=== PATIENT | female | born 1970 | race Caucasian/White ===

== ENCOUNTER 2017-04-17 14:44 | Inpatient (IN) | payer SELFPAY ==
[~2017-04-17] VITALS: Ht 160 cm; Wt 59.0 kg
[2017-04-17 15:18] LABS: BASOPHILS 0.2 % (0-2); EOSINOPHILS 0.4 % (0-7); HEMATOCRIT 42.4 % (36.0-48.0); HEMOGLOBIN 14.1 g/dL (12-16); IMMATURE GRANULOCYTES 0.2 % (0-5); LYMPHOCYTES 6.8 % (15-50); MCH 30.9 pg (26.0-34.0); MCHC 33.3 g/dL (31.0-37.0); MCV 92.8 fL (80.0-100.0); MEAN PLATELET VOLUME 10.8 fL (7.4-10.4); MONOCYTES 14.7 % (2-11); NEUTROPHILS 77.7 % (40-80); PLATELET COUNT 272 10x3/uL (130-400); RBC 4.57 10x6/uL (4.00-5.40); RDW 13.3 % (11.5-14.5); WBC 17.1 10x3/uL (4.8-10.8)
[2017-04-17 15:31] LABS: APPEARANCE CLEAR (CLEAR); BILIRUBIN NEGATIVE (NEGATIVE); COLOR YELLOW (YELLOW); GLUCOSE NEGATIVE (NEGATIVE); KETONE NEGATIVE (NEGATIVE); LEUKOCYTE ESTERASE TRACE (NEGATIVE); NITRITE NEGATIVE (NEGATIVE); PROTEIN NEGATIVE (NEGATIVE); UROBILINOGEN NORMAL (NORMAL)
[2017-04-17 15:33] LABS: EPITHELIAL CELLS 0-5 /hpf (0-5); RED CELLS - URINE 0-5 /hpf (0-5); WHITE CELLS - URINE 0-5 /hpf (0-5)
[2017-04-17 15:34] LABS: BACTERIA FEW /hpf (NONE SEEN)
[2017-04-17 15:42] LABS: ALBUMIN 4.2 g/dL (3.4-5.0); ALKALINE PHOSPHATASE 65 U/L (46-116); ALT (SGPT) 18 U/L (10-68); AMYLASE - SERUM 35 U/L (25-115); BILIRUBIN - TOTAL 0.56 mg/dL (0.2-1.3); CALC OSMOLALITY 270 mosm/kg (275-300); CALCIUM 9.4 mg/dL (8.5-10.1); CARBON DIOXIDE 22.7 mmol/L (21.0-32.0); CHLORIDE - SERUM 102 mmol/L (98-107); CREATININE - SERUM 0.6 mg/dL (0.6-1.3); GLUCOSE 113 mg/dL (74-106); LIPASE 81 U/L (73-393); PROTEIN - SERUM 7.1 g/dL (6.4-8.2); SODIUM 136 mmol/L (136-145); UREA NITROGEN 8 mg/dL (7-18); eGFR NON AFRICAN AMERICAN > 90 mL/min (90-120)
--- NOTE | 2017-04-17 20:10 | NUR ---
PATIENT RESTING IN BED WITH GUEST AT BEDSIDE. NO VISIBLE SIGNS OF DISTRESS. PATIENT REQUESTED PAIN MEDS WHEN DUE. PT DENIES OTHER NEEDS AT THIS TIME. BED IN LOWEST POSITION AND CALL LIGHT WITHIN REACH. ENCOURAGED THE PT TO CALL IF SHE HAS NEEDS.
--- NOTE | 2017-04-17 22:17 | NUR ---
PT REQUESTED NICOTINE PATCH WHILE IN THE HOSPITAL
[2017-04-17 22:39] VITALS: BP 101/78; BMI 23.0
[2017-04-18] VITALS (7 sets, daily range): BP systolic 90–125; BP diastolic 58–86; Ht 160 cm; Wt 59.0 kg
[2017-04-18 05:57] LABS: BASOPHILS 0.1 % (0-2); EOSINOPHILS 0.5 % (0-7); HEMATOCRIT 35.5 % (36.0-48.0); HEMOGLOBIN 11.9 g/dL (12-16); IMMATURE GRANULOCYTES 0.3 % (0-5); LYMPHOCYTES 6.8 % (15-50); MCH 30.7 pg (26.0-34.0); MCHC 33.5 g/dL (31.0-37.0); MCV 91.5 fL (80.0-100.0); MEAN PLATELET VOLUME 10.5 fL (7.4-10.4); MONOCYTES 15.9 % (2-11); NEUTROPHILS 76.4 % (40-80); PLATELET COUNT 248 10x3/uL (130-400); RBC 3.88 10x6/uL (4.00-5.40); RDW 13.3 % (11.5-14.5); WBC 13.6 10x3/uL (4.8-10.8)
[2017-04-18 06:25] LABS: ALKALINE PHOSPHATASE 59 U/L (46-116); BILIRUBIN - DIRECT 0.12 mg/dL (0.00-0.30); BILIRUBIN - INDIRECT 0.41 mg/dL (0.00-1.00); BILIRUBIN - TOTAL 0.53 mg/dL (0.2-1.3); CALC OSMOLALITY 268 mosm/kg (275-300); CALCIUM 7.9 mg/dL (8.5-10.1); CARBON DIOXIDE 22.7 mmol/L (21.0-32.0); CHLORIDE - SERUM 105 mmol/L (98-107); CREATININE - SERUM 0.5 mg/dL (0.6-1.3); GLUCOSE 112 mg/dL (74-106); LIPASE 71 U/L (73-393); POTASSIUM - SERUM 4.3 mmol/L (3.5-5.1); PROTEIN - SERUM 5.7 g/dL (6.4-8.2); SODIUM 135 mmol/L (136-145); UREA NITROGEN 8 mg/dL (7-18); eGFR NON AFRICAN AMERICAN > 90 mL/min (90-120)
[2017-04-18 06:27] LABS: ALT (SGPT) 27 U/L (10-68); AMYLASE - SERUM 25 U/L (25-115)
--- NOTE | 2017-04-18 07:35 | NUR ---
A&O, NO DISTRESS NOTED, DENIES NEEDS, ASKING ABOUT HAVING SIRGERY TODAY, BED LOWEST POSITION, CALL LIGHT IN REACH, WILL CONTINUE TO MONITOR
[2017-04-18 11:29] LABS: INR 1.08 (0.85-1.17); PROTIME 13.9 SECONDS (11.6-15.0)
--- NOTE | 2017-04-18 11:45 | NUR ---
TOTAL FLUOR TIME DURING PROCEDURE ONE MINUTE, 8 SECONDS, TOTAL CONTRAST DYE USED 15 ML
--- NOTE | 2017-04-18 12:30 | NUR ---
RECEIVE TO FLOOR FROM RECOVERY, DENIES NEEDS, STILL SOME COMPLAINTS OF ABDOMINAL PAIN, CONNECTED BACK TO HEADING MAKER, WILL CONTINUE TO MONITOR
--- NOTE | 2017-04-18 14:29 | NUR ---
REPORT RECIEVED ASSUMED CARE. PATIENT IN BED WITH IV INTACT. NO COMPLAINTS AT THIS TIME. CALL LIGHT WITHIN REACH.
--- NOTE | 2017-04-18 18:45 | NUR ---
PATIENT IN BED WITH IV INTACT. NO COMPLAINTS AT THIS TIME. FAMILY AT BEDSIDE. CALL LIGHT WITHIN REACH.
--- NOTE | 2017-04-18 19:50 | NUR ---
PATIENT RESTING IN BED WITH GUEST AT BEDSIDE. I BROUGHT THE PT WARM TEA THAT SHE REQUESTED FOR HER "SORE THROAT". PATIENT DENIES OTHER NEEDS AT THIS TIME. BED IN LOWEST POSITION AND CALL LIGHT WITHIN REACH. ENCOURAGED THE PATIENT TO CALL IF SHE HAS NEEDS.
[2017-04-19] VITALS: BP 102/62
--- NOTE | 2017-04-19 02:30 | NUR ---
NOTIFIED BY HAM JEAN BAPTISTE THAT THE PATIENT'S IV APPEARED TO BE RED AND TENDER. I RESITED THE PATIENT'S IV IN THE LEFT FA WITH A 20G ON THE SECOND ATTEMPT.
[2017-04-19 04:00] VITALS: BP 99/66
[2017-04-19 06:13] LABS: BASOPHILS 0.2 % (0-2); EOSINOPHILS 1.1 % (0-7); HEMATOCRIT 32.8 % (36.0-48.0); HEMOGLOBIN 11.1 g/dL (12-16); IMMATURE GRANULOCYTES 0.2 % (0-5); LYMPHOCYTES 11.1 % (15-50); MCH 30.7 pg (26.0-34.0); MCHC 33.8 g/dL (31.0-37.0); MCV 90.6 fL (80.0-100.0); MEAN PLATELET VOLUME 10.6 fL (7.4-10.4); MONOCYTES 14.2 % (2-11); NEUTROPHILS 73.2 % (40-80); PLATELET COUNT 243 10x3/uL (130-400); RBC 3.62 10x6/uL (4.00-5.40); WBC 12.2 10x3/uL (4.8-10.8)
[2017-04-19 06:30] LABS: CALC OSMOLALITY 266 mosm/kg (275-300); CALCIUM 8.1 mg/dL (8.5-10.1); CARBON DIOXIDE 24.8 mmol/L (21.0-32.0); CHLORIDE - SERUM 102 mmol/L (98-107); CREATININE - SERUM 0.5 mg/dL (0.6-1.3); GLUCOSE 105 mg/dL (74-106); POTASSIUM - SERUM 3.8 mmol/L (3.5-5.1); SODIUM 135 mmol/L (136-145); eGFR NON AFRICAN AMERICAN > 90 mL/min (90-120)
[2017-04-19 06:31] LABS: UREA NITROGEN 5 mg/dL (7-18)
[2017-04-19 07:55] VITALS: BP 98/54
--- NOTE | 2017-04-19 09:27 | NUR ---
Patient Name: BRINA HELM Admission Status: ER Accout number: [id number] Admission Date: 04-17-2017 : 1970 Admission Diagnosis: Attending: GLADYS, Current LOS: 2 Anticipated DC Date: Planned Disposition: Assisted Living Primary Insurance: UNINSURED DISCOUNT PLAN Discharge Planning Comments: CM MET WITH PATIENT TO ASSESS DISCHARGE PLANNING NEEDS.PATIENT LIVES INDEPENDENTLY WITH HER , WHERE SHE PLANS TO RETURN AT [facility]. HER , GERTRUDE SEGOVIA WILL BE THE ONE TO DRIVE HER HOME . PATIENT DENIES ANY DME OR HH SERVICES AND DOES NOT WANT ANY FOR DISCHARGE. CM WILL CONTINUE TO FOLLOW AND ASSIST WITH DISHCARGE PLANNING NEEDS. PCP: NONE [facility] GERTRUDE SEGOVIA () [phone] [employer] Sales Associate: Leslie Mart * Is the patient Alert and Oriented? Yes 0 * How many steps to enter\exit or inside your home? 0 0 * PCP NONE 0 * Pharmacy [facility] 0 * Preadmission Environment Home with Family 0 * ADLs Independent 0 * Equipment None 0 * List name and contact numbers for known caregivers / representatives who currently or will assist patient after discharge: GERTRUDE SEGOVIA () [phone] * Community resources currently utilized None 0 * Additional services required to return to the preadmission environment? No 0 * Can the patient safely return to the preadmission environment? Yes 0 * Has this patient been hospitalized within the prior 30 days at any hospital? No 0 Grand Total: 0
--- NOTE | 2017-04-19 09:35 | NUR ---
PATIENT IN LEFT LATERAL POSITION RESTING QUIETLY WITH EYES CLOSED. RESPIRATIONS EVEN AND UNLABORED. SIDE RAILS UP X2. BED IN LOW POSITION. CALL LIGHT IN REACH.
--- NOTE | 2017-04-19 10:00 | NUR ---
PT LEFT FOR SURGERY, PRE-OP MEDS AND ASSESSMENT DONE
[2017-04-19 11:04] LABS: HCG SERUM NEGATIVE (NEGATIVE)
[2017-04-19] MEDS ORDERED: HYDROCODON-ACE1 EAC7 PO (11:58)
[2017-04-19] MEDS ORDERED: AUGMENTIN 875-11 TAB PO (11:59)
[2017-04-19 12:54] VITALS: BP 91/59
[2017-04-19 15:59] VITALS: BP 90/49
--- NOTE | 2017-04-19 18:18 | NUR ---
DISCHARGE PAPERS AND INSTRUCTIONS GIVE, QUESTIONS ANSWERED, IV REMOVED TIP INTACT, DISCHARGED PER WC WITH BELONGINGS
== END 2017-04-19 18:19 | disposition home or self-care (01) | DRG 418 ==
LOC: D.ER 14:44 → D.MS 18:36
PROVIDERS: Anesthesiology; Emergency Medicine; ADMIT Family Medicine
PROC: 0FC98ZZ Extirpation of Matter from Common Bile Duct, Via Natural or Artificial Opening Endoscopic (ICD-10-PCS; principal; 2017-04-17)
PROC: BF101ZZ Fluoroscopy of Bile Ducts using Low Osmolar Contrast (ICD-10-PCS; 2017-04-17)
PROC: 0FT44ZZ Resection of Gallbladder, Percutaneous Endoscopic Approach (ICD-10-PCS; 2017-04-19)
DX: K80.42 Calculus of bile duct with acute cholecystitis without obstruction (principal); F17.203 Nicotine dependence unspecified, with withdrawal; D64.9 Anemia, unspecified; K21.9 Gastro-esophageal reflux disease without esophagitis